=== PATIENT | male | born 1985 | race Caucasian/White ===

== ENCOUNTER 2018-06-01 07:22 | Emergency (ER) | payer BC, OTHER ==
[2018-06-01 07:24] VITALS: BMI 31.9
[2018-06-01] MEDS ORDERED: Dexamethasone 10 MG in Sodium Chloride 0.9% 50 ML IV STA (07:52)
[2018-06-01] MEDS ORDERED: Sodium Chloride 0.9% 1,000 ML IV STA (07:57)
--- NOTE | 2018-06-01 08:04 | ED PDOC ---
HPI: CCC, URI, Sore Throat Time Seen by Provider: 06/01/18 07:26 Chief Complaint (Nursing): Flu-like Symptoms Chief Complaint (Provider): Flu-like symptoms History Per: Patient History/Exam Limitations: no limitations Onset/Duration Of Symptoms: Days (x3 days), Intermittent Episodes (x1 months) Current Symptoms Are (Timing): Still Present Location Of Pain: Throat Associated Symptoms: Fever, Sore Throat. denies: Cough, Nasal Congestion Additional Complaint(s): Guille Hill is a 33 year old male, with no significant past medical history, who presents to the emergency department complaining of flu-like symptoms ongoing for x3 days. Patient states symptoms have been recurrent for the last month and a half. He reports an intermittent Fever with Tmax of 101 last week and a worsening sore throat. He took Tylenol last night. He denies any cough, congestion, shortness of breath, nausea, vomit, diarrhea or other medical complaints. PMD: [facility]. Past Medical History Reviewed: Historical Data, Nursing Documentation, Vital Signs Vital Signs: Last Vital Signs Temp 98.7 F 06/01/18 07:24 Pulse 74 06/01/18 07:24 Resp 17 06/01/18 07:24 BP 138/84 06/01/18 07:24 Pulse Ox 96 06/01/18 07:24 - Medical History PMH: No Chronic Diseases Denies: Chronic Kidney Disease - Surgical History Surgical History: No Surg Hx - Family History Family History: States: Unknown Family Hx - Social History Current smoker - smoking cessation education provided: No Alcohol: Social Drugs: Denies - Immunization History Hx Tetanus Toxoid Vaccination: No Hx Influenza Vaccination: No Hx Pneumococcal Vaccination: No - Home Medications Home Medications: Ambulatory Orders Medication Instructions Recorded Sulfamethoxazole/Trimethoprim 1 tab PO BID #20 tab 07/24/15 [Bactrim DS 800 mg-160 mg] Azithromycin [Zithromax] 250 mg PO DAILY #4 tab 06/01/18 Naproxen [Naprosyn] 500 mg PO BID PRN #15 tablet 06/01/18 - Allergies Allergies/Adverse Reactions: Allergies Allergy/AdvReac Type Severity Reaction Status Date / Time No Known Allergies Allergy Verified 07/24/15 14:01 Review of Systems ROS Statement: Except As Marked, All Systems Reviewed And Found Negative Constitutional: Positive for: Fever ENT: Positive for: Throat Pain. Negative for: Nose Congestion Respiratory: Negative for: Cough, Shortness of Breath Gastrointestinal: Negative for: Nausea, Vomiting, Diarrhea Physical Exam - Reviewed Nursing Documentation Reviewed: Yes Vital Signs Reviewed: Yes - Physical Exam Appears: Positive for: No Acute Distress Head Exam: Positive for: ATRAUMATIC, NORMAL INSPECTION, NORMOCEPHALIC Skin: Positive for: Normal Color, Warm, Dry Eye Exam: Positive for: Normal appearance, EOMI, PERRL ENT: Positive for: Tonsillar Swelling (Edeimuts bilateral tonsils), Other (Uvula is edemitus. Handling secretions well). Negative for: Tonsillar Exudate Neck: Positive for: Normal, Painless ROM, Supple Cardiovascular/Chest: Positive for: Regular Rate, Rhythm. Negative for: Murmur Respiratory: Positive for: Normal Breath Sounds, Other (Speaking full sentences). Negative for: Respiratory Distress Gastrointestinal/Abdominal: Positive for: Normal Exam, Soft. Negative for: Tenderness Back: Positive for: Normal Inspection. Negative for: L CVA Tenderness, R CVA Tenderness, Vertebral Tenderness Extremity: Positive for: Normal ROM (upper and lower extremities). Negative for: Deformity, Swelling Neurological/Psych: Positive for: Awake, Alert, Normal Tone - Laboratory Results Result Diagrams: 06/01/18 08:30 06/01/18 08:30 - ECG O2 Sat by Pulse Oximetry: 96 (RA) Pulse Ox Interpretation: Normal Medical Decision Making Medical Decision Making: Time: 07:26 Initial Impression: Strep pharyngitis, Flu-like symptoms Initial Plan: --CMP --CBC w/ differential --Dexamethasone 10mg NaCl 0.9% 50 ml IV --NaCl 0.9% 1,000 ml IV 500 mls/hr --Toradol 15 mg IV --Influenza A B --Rapid Strep Group A Antigen --Reevaluation 08:15 Labs show positive Strep 10:00 Upon provider evaluation patient is medically stable, and requires no further treatment in the ED at this time. Patient will be discharged home with Rx for Zithromax and Naprosyn. Counseling was provided and all questions were answered regarding diagnosis and need for follow up with [facility]. There is agreement to discharge plan. Return if symptoms persist or worsen. Scribe Attestation: Documented by Joseph Ramírez, acting as a scribe for Pat Nugent MD Provider Scribe Attestation: All medical record entries made by the Scribe were at my direction and personally dictated by me. I have reviewed the chart and agree that the record accurately reflects my personal performance of the history, physical exam, m edical decision making, and the department course for this patient. I have also personally directed, reviewed, and agree with the discharge instructions and disposition. Disposition - Clinical Impression Clinical Impression: Strep pharyngitis - Disposition Disposition Time: 10:05 Condition: IMPROVED Additional Instructions: FOLLOW-UP WITH [facility] WITHIN 2 DAYS FOR REEVALUATION. Prescriptions: Azithromycin [Zithromax] 250 mg PO DAILY #4 tab Naproxen [Naprosyn] 500 mg PO BID PRN #15 tablet PRN Reason: Pain, Moderate (4-7) Instructions: Strep Throat (DC) Forms: Doc[employer] ([place]ian)
[2018-06-01 08:41] LABS: BASO % 0.3 % (0.0-2.0); EOS # 0.1 K/uL (0.0-0.7); EOS % 1.1 % (0.0-4.0); LYMPH # 2.3 K/uL (1.0-4.3); LYMPH % 18.9 % (20.0-40.0); MEAN CELL VOLUME 89.2 fl (80.0-94.0); MEAN CORPUSCULAR HEMOGLOBIN 30.2 pg (27.0-31.0); MEAN CORPUSCULAR HGB CONC 33.9 g/dL (33.0-37.0); MEAN PLATELET VOLUME 8.2 fl (7.2-11.7); MONO # 1.2 K/uL (0.0-0.8); MONO % 9.7 % (0.0-10.0); NEUT # 8.5 K/uL (1.8-7.0); NRBC % 0.1 % (0.0-0.0); RBC 4.96 Mil/uL (4.40-5.90); RED CELL DISTRIBUTION WIDTH 12.6 % (11.5-14.5); WHITE BLOOD COUNT 12.1 K/uL (4.8-10.8)
[2018-06-01 08:47] LABS: ALB/GLOB RATIO 1.2 (1.0-2.1); ALBUMIN 4.4 g/dL (3.5-5.0); ALT/SGPT 36 U/L (21-72); AST/SGOT 36 U/L (17-59); BLOOD UREA NITROGEN 11 mg/dl (9-20); CALCIUM 9.1 mg/dL (8.4-10.2); GFR NON-AFRICAN AMERICAN > 60
[2018-06-01] MEDS ORDERED: Azithromycin 500 MG IV IVPB ONE (09:06)
[2018-06-01] MEDS ORDERED: Azithromycin 500 MG in Sodium Chloride 0.9% 250 ML IVPB STA (09:09)
[2018-06-01 12:24] VITALS: BP 137/71; PULSE 67; RESP 16; TEMP 97.6; O2SAT 99
== END 2018-06-01 11:30 | disposition home or self-care (01) ==
LOC: H.ER 07:22
DX: J02.0 Streptococcal pharyngitis (principal)
CPT/HCPCS: 80053; 85025; 87430; 87804; 96361; 96365; 96375; 96376; 99285; J0456; J1100; J1885; J7030; J7050